=== PATIENT | male | born 1950 | race Caucasian/White ===

== ENCOUNTER 2016-11-06 18:08 | Emergency (ER) | payer MEDICARE, OTHER ==
[~2016-11-06] VITALS: Ht 185.4 cm; Wt 78.6 kg
[2016-11-06 18:09] VITALS: BP 179/85
[2016-11-06 20:03] LABS: BASO # 0.1 K/mm3 (0.0-0.2); BASO % 1.8 % (0.0-1.0); EOS # 0.8 K/mm3 (0.0-0.50); EOS % 10.7 % (0.0-3.0); LARGE UNSTAINED CELL # 0.2 K/mm3 (0.0-0.4); LARGE UNSTAINED CELL % 2.4 % (0.0-4.0); LYMPH # 1.5 K/mm3 (1.5-4.5); LYMPH % 17.4 % (24.0-44.0); MEAN CORPUSCULAR HEMOGLOBIN 30.8 pg (27.0-33.0); MEAN CORPUSCULAR VOLUME 90.7 fl (80.0-96.0); MONO # 0.6 K/mm3 (0.0-0.8); MONO % 7.4 % (0.0-5.0); NEUTROPHILS # 4.7 K/mm3 (1.8-7.7); NEUTROPHILS % 60.3 % (36.0-66.0); PLATELET COUNT, AUTOMATED 216 k/mm3 (150-450); RED CELL DISTRIBUTION WIDTH 14.4 % (11.5-14.5); WHITE BLOOD COUNT 7.8 K/mm3 (4.0-10.0)
[2016-11-06 20:23] LABS: CALCIUM LEVEL 8.9 MG/DL (8.8-10.2); CREATININE FOR GFR 5.07 MG/DL (0.70-1.30); GLOMERULAR FILTRATION RATE 12.2 (>49); POTASSIUM SERUM 4.9 MEQ/L (3.5-5.1)
== END 2016-11-06 21:27 | disposition home or self-care (01) ==
LOC: M ED 18:08
DX: N18.9 Chronic kidney disease, unspecified (principal); I12.9 Hypertensive chronic kidney disease with stage 1 through stage 4 chronic kidney disease, or unspecified chronic kidney disease; E11.22 Type 2 diabetes mellitus with diabetic chronic kidney disease; I25.10 Atherosclerotic heart disease of native coronary artery without angina pectoris; I25.2 Old myocardial infarction; E78.00 Pure hypercholesterolemia, unspecified; F17.200 Nicotine dependence, unspecified, uncomplicated; Z86.73 Personal history of transient ischemic attack (TIA), and cerebral infarction without residual deficits; Z95.1 Presence of aortocoronary bypass graft

== ENCOUNTER 2017-01-02 15:12 | Emergency (ER) | payer OTHER, MEDICARE ==
[~2017-01-02] VITALS: Ht 185.4 cm; Wt 80.9 kg
[2017-01-02] MEDS ORDERED: INSULANT SC (15:24)
[2017-01-02] MEDS ORDERED: ROCA0.25 PO (15:24)
[2017-01-02] MEDS ORDERED: FURO40TA2 PO ×2 (15:24→20:19)
[2017-01-02] MEDS ORDERED: CYMB60CA3 PO (15:24)
[2017-01-02] MEDS ORDERED: CARV25TA PO (15:24)
[2017-01-02] MEDS ORDERED: ASPI81TA85 PO (15:24)
[2017-01-02] MEDS ORDERED: PREG50CA PO (15:24)
[2017-01-02] MEDS ORDERED: ATOR40TA75 PO (15:24)
[2017-01-02 18:23] LABS: BASO # 0.1 10^3/uL (0.0-0.2); BASO % 0.9 % (0.0-1.0); EOS # 0.7 10^3/uL (0.0-0.50); EOS % 8.2 % (0.0-3.0); IMMATURE GRANULOCYTE % 0.2 % (0-0); LYMPH # 1.1 10^3/uL (1.5-4.5); LYMPH % 12.5 % (24.0-44.0); MEAN CORPUSCULAR HEMOGLOBIN 30.1 pg (27.0-33.0); MEAN CORPUSCULAR HGB CONC 34.3 g/dl (32.0-36.5); MEAN CORPUSCULAR VOLUME 87.8 fl (80.0-96.0); MONO # 0.5 10^3/uL (0.0-0.8); MONO % 5.1 % (0.0-5.0); NEUTROPHILS # 6.6 10^3/uL (1.8-7.7); NEUTROPHILS % 73.1 % (36.0-66.0); PLATELET COUNT, AUTOMATED 195 10^3/uL (150-450); RED CELL DISTRIBUTION WIDTH 14.1 % (11.5-14.5)
[2017-01-02 18:25] LABS: CALCIUM LEVEL 10.5 MG/DL (8.8-10.2); CREATININE FOR GFR 6.12 MG/DL (0.70-1.30); GLOMERULAR FILTRATION RATE 9.8 (>49); POTASSIUM SERUM 4.6 MEQ/L (3.5-5.1)
[2017-01-02 18:26] LABS: INR 1.18
[2017-01-02 18:28] LABS: ADD MORPHOLOGY? NO
--- NOTE | 2017-01-02 18:33 | REP ---
CT Head without contrast HISTORY: Infarction COMPARISON: None Areas of increased signal intensity on T2-weighted images are present in the periventricular and subcortical white matter. This represents small-vessel ischemic disease. There is no intraparenchymal hemorrhage, acute infarct, mass or midline shift. The ventricular system and cortical sulci as well as subarachnoid space in the posterior fossa are dilated consistent with mild volume loss. There is no extra cerebral collection. There is no fracture. The visualized sinuses are clear. IMPRESSION: 1. Small vessel ischemic disease. 2. Mild volume loss. Signed by Andrea Stevens MD 01/02/2017 06:24 P
--- NOTE | 2017-01-02 18:37 | REP ---
Chest two views HISTORY: Dizziness Comparison: None The lungs are clear. The heart is normal in size. The pulmonary vasculature is normal in appearance. The bony structure is intact. The patient is status post sternotomy. IMPRESSION: No acute disease. Signed by Andrea Stevens MD 01/02/2017 06:28 P
[2017-01-02] MEDS ORDERED: ATOR80TA59 PO (20:19)
[2017-01-02 21:51] VITALS: BP 153/80
--- NOTE | 2017-01-02 23:47 | REPUSA ---
MRI of the brain Clinical history: memory problems, slurred speech. Technique: [id number] MRA images of the brain were obtained without administration of contrast. 3 -D MIP images were also obtained. Findings: The vascular structures extending from the distal carotid and vertebrobasilar arterial syst ems, through the [place], demonstrate normal caliber and contour. There is no evidence of an eurysm, stenosis, or thrombosis. Impression: Unremarkable MRA examination of the brain.
--- NOTE | 2017-01-02 23:47 | REPUSA ---
MRI of the brain. Clinical history: memory problems, slurred speech. Technique: Multiecho multiplanar MRI images of the brain were obtained without administration of cont rast. Diffusion weighted images with ADC mapping was also obtained. Findings: The ventricles and sulci are symmetric bilaterally. The brain parenchyma demonstrates periventricular and bilateral subcortical white matter T2 hyperintensity. There is no midline shift, mass effect, or extra-axial fluid collection. The midline intracranial structures do not demonstrate any gross abnor malities. The cervical cranial junction is intact. The orbits are unremarkable. The visualized parana gerri sinuses and mastoid air cells are clear. The osseous structures and superficial soft tissues are unremarkable. The vascular structures demonstrate appropriate flow voids. Impression: No acute infarct or hemorrhage. Moderate chronic small vessel ischemic changes as describ ed.
--- NOTE | 2017-01-03 08:27 | ECGEPIP ---
Stationary ECG Study [facility] - ED Test Date: 2017-01-02 Pat Name: JENNYFER AYALA Department: Room: - Gender: M [employer]visor [employer]: delmy : [id number] Requested By: Danilo Do Order Number: [id number] Reading MD: Max Zaragoza Measurements Intervals [place] Rate: 67 P: 53 MT: 175 QRS: 49 QRSD: 125 T: 108 QT: 415 QTc: 440 Interpretive Statements SINUS RHYTHM POSSIBLE LEFT ATRIAL ENLARGEMENT LEFT VENTRICULAR HYPERTROPHY AND ST-T CHANGE PROBABLE INFERIOR MYOCARDIAL INFARCTION, PROBABLY OLD NO PRIORS Electronically Signed On 01-03-2017 8:27:04 EDT by Max Zaragoza
== END 2017-01-03 00:31 | disposition left against medical advice (07) ==
LOC: M ED 15:12
DX: N18.3 Chronic kidney disease, stage 3 (moderate) (principal); E11.40 Type 2 diabetes mellitus with diabetic neuropathy, unspecified; I12.9 Hypertensive chronic kidney disease with stage 1 through stage 4 chronic kidney disease, or unspecified chronic kidney disease; E78.00 Pure hypercholesterolemia, unspecified; F17.210 Nicotine dependence, cigarettes, uncomplicated; I25.2 Old myocardial infarction; Z79.4 Long term (current) use of insulin; Z79.899 Other long term (current) drug therapy; Z79.82 Long term (current) use of aspirin; Z86.73 Personal history of transient ischemic attack (TIA), and cerebral infarction without residual deficits; Z95.5 Presence of coronary angioplasty implant and graft

== ENCOUNTER 2017-12-01 07:00 | Emergency (ER) | payer MEDICARE ==
[2017-12-01] MEDS: NS 1,000 ML IV (07:11)
[2017-12-01 07:37] LABS: BASO # 0.1 10^3/uL (0.0-0.2); BASO % 0.9 % (0.0-1.0); EOS % 8.5 % (0.0-3.0); HEMATOCRIT 38.1 % (42.0-52.0); HEMOGLOBIN 12.6 g/dl (13.5-17.5); IMMATURE GRANULOCYTE % 0.4 % (0-3.0); LYMPH # 1.1 10^3/uL (1.5-4.5); LYMPH % 9.5 % (24.0-44.0); MEAN CORPUSCULAR HEMOGLOBIN 30.1 pg (27.0-33.0); MEAN CORPUSCULAR HGB CONC 33.1 g/dl (32.0-36.5); MEAN CORPUSCULAR VOLUME 90.9 fl (80.0-96.0); MONO # 0.5 10^3/uL (0.0-0.8); MONO % 4.1 % (0.0-5.0); NEUTROPHILS # 9.1 10^3/uL (1.8-7.7); NEUTROPHILS % 76.6 % (36.0-66.0); PLATELET COUNT, AUTOMATED 197 10^3/uL (150-450); RED BLOOD COUNT 4.19 10^6/uL (4.30-6.10); RED CELL DISTRIBUTION WIDTH 15.1 % (11.5-14.5); WHITE BLOOD COUNT 11.8 10^3/uL (4.0-10.0)
[2017-12-01 08:00] LABS: ALBUMIN 3.5 GM/DL (3.2-5.2); ALBUMIN/GLOBULIN RATIO 0.81 (1.00-1.93); ALKALINE PHOSPHATASE 84 U/L (45-117); ALT/SGPT 14 U/L (12-78); ANION GAP 10 MEQ/L (8-16); AST/SGOT 14 U/L (7-37); BILIRUBIN,DIRECT < 0.1 MG/DL (0.0-0.2); BILIRUBIN,TOTAL 0.3 MG/DL (0.2-1.0); BLOOD UREA NITROGEN 54 MG/DL (7-18); CALCIUM LEVEL 8.5 MG/DL (8.8-10.2); CARBON DIOXIDE LEVEL 20 MEQ/L (21-32); CHLORIDE LEVEL 113 MEQ/L (98-107); CK-MB VALUE MASS 4.9 NG/ML (<3.6); CPK CREATINE PHOSPHOKINASE 98 U/L (39-308); CREATININE FOR GFR 5.21 MG/DL (0.70-1.30); GLOMERULAR FILTRATION RATE 11.7 (>49); GLUCOSE, FASTING 170 MG/DL (70-100); LIPASE 1021 U/L (73-393); POTASSIUM SERUM 5.1 MEQ/L (3.5-5.1); SODIUM LEVEL 143 MEQ/L (136-145); TOTAL PROTEIN 7.8 GM/DL (6.4-8.2); TROPONIN I < 0.02 NG/ML (< 0.10)
[2017-12-01] MEDS: LORazepam 2 MG/ML VIAL (J2060) IV (08:01)
[2017-12-01] MEDS: METOCLOPRAMIDE INJ 10MG/2ML VIAL (J2765) IV (08:02)
[2017-12-01] MEDS: MECLIZINE 25 MG TABLET PO (08:02)
[2017-12-01] MEDS: CARVedilol 12.5 MG TAB PO (09:00)
== END 2017-12-01 15:34 | disposition home or self-care (01) ==
LOC: M ED 07:00
DX: I12.9 Hypertensive chronic kidney disease with stage 1 through stage 4 chronic kidney disease, or unspecified chronic kidney disease (principal); R42 Dizziness and giddiness; K85.90 Acute pancreatitis without necrosis or infection, unspecified; E11.9 Type 2 diabetes mellitus without complications; N18.9 Chronic kidney disease, unspecified; G62.9 Polyneuropathy, unspecified; Z86.73 Personal history of transient ischemic attack (TIA), and cerebral infarction without residual deficits; Z95.1 Presence of aortocoronary bypass graft; Z95.5 Presence of coronary angioplasty implant and graft; F17.210 Nicotine dependence, cigarettes, uncomplicated
CPT/HCPCS: J2765

== ENCOUNTER → 2023-11-02 | Outpatient (REF) | payer MEDICARE ==
[~2023-11-02] MED LIST: ASPI81TA86 PO; ATOR40TA75 PO; ATOR80TA59 PO; CARV25TA PO; CYMB60CA4 PO; FURO40TA2 PO; INSULANT SC; MECL-209 PO; PREG50CA PO; ROCA0.25 PO
== END ==
LOC: M LAB REF 16:16
PROVIDERS: ATTEND Student in an Organized Health Care Education/Training Program
DX: R30.0 Dysuria (principal)

== ENCOUNTER 2023-11-25 10:17 | Inpatient (IN) | payer MEDICARE ==
[~2023-11-25] VITALS: Ht 152.4 cm; Wt 62.5 kg
[2023-11-25] MEDS: BISOPROLOL FUM 2.5 MG PER 1/2TAB PO SCH (09:00)
[2023-11-25] MEDS: LISINOPRIL *2.5 MG* TAB PO SCH (09:00)
[2023-11-25 11:30] LABS: BASO # 0.1 10^3/uL (0.0-0.2); BASO % 1.8 % (0.0-1.0); EOS # 0.2 10^3/uL (0.0-0.5); EOS % 4.5 % (0.0-3.0); HEMATOCRIT 33.8 % (42.0-52.0); HEMOGLOBIN 10.9 g/dl (13.5-17.5); LYMPH # 0.8 10^3/uL (1.5-5.0); LYMPH % 15.8 % (24.0-44.0); MEAN CORPUSCULAR HEMOGLOBIN 30.9 pg (27.0-33.0); MEAN CORPUSCULAR HGB CONC 32.2 g/dl (32.0-36.5); MEAN CORPUSCULAR VOLUME 95.8 fl (80.0-96.0); MONO # 0.3 10^3/uL (0.0-0.8); MONO % 6.6 % (2.0-8.0); NEUTROPHILS # 3.5 10^3/uL (1.5-8.5); NEUTROPHILS % 70.9 % (36.0-66.0); PLATELET COUNT, AUTOMATED 191 10^3/uL (150-450); RED BLOOD COUNT 3.53 10^6/uL (4.30-6.10); WHITE BLOOD COUNT 4.9 10^3/uL (4.0-10.0)
[2023-11-25 11:38] LABS: INR 1.21; PROTHROMBIN TIME 14.9 SECONDS (12.5-14.5)
[2023-11-25] MEDS: LIDOCAINE 2% 5ML JELLY UROJET TOP ONE (11:52)
[2023-11-25 12:53] LABS: ALBUMIN 3.8 G/DL (3.2-5.2); BILIRUBIN,TOTAL 0.3 MG/DL (0.3-1.2); CALCIUM LEVEL 8.5 MG/DL (8.3-10.6); CREATININE FOR GFR 5.5 MG/DL (0.70-1.30); GLOMERULAR FILTRATION RATE 10.8 (>42); POTASSIUM SERUM 5.9 MMOL/L (3.5-5.1); TOTAL PROTEIN 7.6 G/DL (5.7-8.2)
[2023-11-25] MEDS ORDERED: HOME MED LIST COMPLETE! XX SCH (13:40)
[2023-11-25] MEDS ORDERED: GLUCAGON INJ 1MG VIAL SC PRN (15:05)
[2023-11-25] MEDS ORDERED: DEXTROSE 50% 50ML SYRINGE IV PRN (15:05)
[2023-11-25] MEDS ORDERED: GLUCOSE 4 GM CHEW PO PRN (15:05)
[2023-11-25] MEDS: oxyBUTYnin 5 MG TAB PO SCH (15:23)
[2023-11-25] MEDS: ACETAMINOPHEN TAB 650MG DOSE (2X325MG) PO PRN (15:23)
[2023-11-25] MEDS: NICOTINE 21MG/24HR 1 EA TRANSDERMAL TD ONE (15:23)
[2023-11-25] MEDS: NS 1,000 ML IV SCH (15:24)
[2023-11-25 16:10] LABS: C REACTIVE PROTEIN QUANTITATIV 0.5 MG/DL (<1.0)
[2023-11-25 16:11] LABS: CHOLESTEROL RISK RATIO 4.29 (<5); HDL CHOLESTEROL 41.9 MG/DL (>40); LDL CHOLESTEROL 114.3 MG/DL (<100); NON-HDL-C 138.1 MG/DL
[2023-11-25 16:13] LABS: FREE T4 1.19 NG/DL (0.89-1.76); THYROID STIMULATING HORMONE 2.192 uIU/ML (0.55-4.78); TOTAL 25(OH) VITAMIN D 35.7 NG/ML (20.0-100.0)
[2023-11-25] MEDS: INSULIN LISPRO (NovoLOG) PER UNIT SC SCH ×2 (17:30→21:18)
[2023-11-25 17:35] VITALS: BP 111/91; TEMP 97.9; O2SAT 97
[2023-11-25 19:55] LABS: HEMOGLOBIN A1c 6.1 % (4.0-6.0)
[2023-11-25 19:59] VITALS: BP 100/63; TEMP 97.9; O2SAT 95
[2023-11-25] MEDS: ONDANSETRON 4MG 2ML VIAL IV ONE (21:35)
[2023-11-25 22:19] LABS: ALBUMIN 3.5 G/DL (3.2-5.2); ALKALINE PHOSPHATASE 86 U/L (46-116); ALT/SGPT < 9 U/L (7.0-40); AST/SGOT 9 U/L (<34); BILIRUBIN,TOTAL 0.2 MG/DL (0.3-1.2); BLOOD UREA NITROGEN 55 MG/DL (9-23); CALCIUM LEVEL 8.5 MG/DL (8.3-10.6); CARBON DIOXIDE LEVEL 26 MMOL/L (20-31); CHLORIDE LEVEL 103 MMOL/L (98-107); CREATININE FOR GFR 6.52 MG/DL (0.70-1.30); GLOMERULAR FILTRATION RATE 8.9 (>42); GLUCOSE, FASTING 305 MG/DL (74-106); MAGNESIUM LEVEL 2.2 MG/DL (1.8-2.4); POTASSIUM SERUM 4.9 MMOL/L (3.5-5.1); SODIUM LEVEL 139 MMOL/L (136-145)
[2023-11-26] VITALS (12 sets, daily range): BP systolic 86–124; BP diastolic 55–78; TEMP 97.7–98.1; O2SAT 91–100
[2023-11-26 06:14] LABS: HEMATOCRIT 26.7 % (42.0-52.0); MEAN CORPUSCULAR HEMOGLOBIN 30.7 pg (27.0-33.0); MEAN CORPUSCULAR HGB CONC 32.2 g/dl (32.0-36.5); MEAN CORPUSCULAR VOLUME 95.4 fl (80.0-96.0); PLATELET COUNT, AUTOMATED 192 10^3/uL (150-450); WHITE BLOOD COUNT 9.1 10^3/uL (4.0-10.0)
[2023-11-26 06:22] LABS: HEMOGLOBIN 8.6 g/dl (13.5-17.5)
[2023-11-26 06:30] LABS: ALBUMIN 3.4 G/DL (3.2-5.2); BILIRUBIN,TOTAL 0.2 MG/DL (0.3-1.2); CALCIUM LEVEL 8.4 MG/DL (8.3-10.6); CREATININE FOR GFR 6.95 MG/DL (0.70-1.30); GLOMERULAR FILTRATION RATE 8.3 (>42); POTASSIUM SERUM 5.4 MMOL/L (3.5-5.1); TOTAL PROTEIN 6.5 G/DL (5.7-8.2)
[2023-11-26] MEDS: ATORVASTATIN 20 MG TAB PO SCH (08:39)
[2023-11-26] MEDS: (RENVELA) SEVELAMER **CARBONate** 800 MG TAB PO SCH (11:53)
[2023-11-26] MEDS ORDERED: ONDANSETRON 4MG 2ML VIAL As Ordered ONE (12:49)
[2023-11-26] MEDS ORDERED: propofoL 200 MG/20 ML VIAL As Ordered ONE (12:49)
[2023-11-26] MEDS ORDERED: LIDOCAINE 2% 100MG/5ML SDV (FOR ANES.) As Ordered ONE (12:52)
[2023-11-26] MEDS ORDERED: fentaNYL 100 MCG/2 ML INJECTION As Ordered ONE (12:54)
[2023-11-26] MEDS ORDERED: PHENYLephrine 500MCG 5ML (100MCG/ML) SYRINGE As Ordered ONE (13:27)
[2023-11-26] MEDS: ceFAZolin 2 GM/D5W 50 ML IV BAG As Ordered ONE (13:29)
[2023-11-26] MEDS: fentaNYL 100 MCG/2 ML INJECTION IV PRN (14:29)
[2023-11-26] MEDS: LR 1,000 ML IV SCH (14:30)
[2023-11-26] MEDS ORDERED: ONDANSETRON 4MG 2ML VIAL IV PRN (14:30)
[2023-11-26] MEDS ORDERED: diphenhydrAMINE 50MG/ML VIAL IV PRN (14:30)
[2023-11-26] MEDS ORDERED: METOCLOPRAMIDE INJ 10MG/2ML VIAL IV PRN (14:30)
[2023-11-26] MEDS ORDERED: MEPERIDINE 25 MG/ML 1ML VIAL IV PRN (14:30)
[2023-11-26] MEDS: oxyCODONE 5MG TAB PO PRN (14:38)
[2023-11-26] MEDS: HYOSCYAMINE SULFATE 0.125 MG SUBL TABLET PO SCH (15:29)
[2023-11-26] MEDS: oxyBUTYnin 5 MG TAB PO SCH (15:29)
[2023-11-26] MEDS: PATIROMER SORBITEX CALCIUM 8.4 GM POWDER PACKET (VELTASSA) PO ONE (15:29)
[2023-11-26] MEDS: diphenhydrAMINE 12.5MG/5ML ELIXIR UDC PO PRN (18:27)
[2023-11-27] VITALS (9 sets, daily range): BP systolic 83–124; BP diastolic 47–77; TEMP 97.7–98.2; O2SAT 97–99
[2023-11-27 05:58] LABS: BASO # 0.1 10^3/uL (0.0-0.2); BASO % 0.8 % (0.0-1.0); EOS # 0.3 10^3/uL (0.0-0.5); EOS % 4.9 % (0.0-3.0); HEMATOCRIT 23.5 % (42.0-52.0); HEMOGLOBIN 7.5 g/dl (13.5-17.5); LYMPH # 1.1 10^3/uL (1.5-5.0); LYMPH % 16.4 % (24.0-44.0); MEAN CORPUSCULAR HEMOGLOBIN 30.7 pg (27.0-33.0); MEAN CORPUSCULAR HGB CONC 31.9 g/dl (32.0-36.5); MEAN CORPUSCULAR VOLUME 96.3 fl (80.0-96.0); MONO # 0.5 10^3/uL (0.0-0.8); MONO % 7.3 % (2.0-8.0); NEUTROPHILS # 4.5 10^3/uL (1.5-8.5); NEUTROPHILS % 70.1 % (36.0-66.0); PLATELET COUNT, AUTOMATED 161 10^3/uL (150-450); RED BLOOD COUNT 2.44 10^6/uL (4.30-6.10); WHITE BLOOD COUNT 6.5 10^3/uL (4.0-10.0)
[2023-11-27] MEDS ORDERED: HEPARIN 1,000UNITS/ML 10ML VIAL (FOR RADIOLOGY & DIALYSIS ONLY) XX SCH (06:00)
[2023-11-27] MEDS ORDERED: HEPARIN 1,000UNITS/ML 10ML VIAL (FOR RADIOLOGY & DIALYSIS ONLY) IV PRN (06:00)
[2023-11-27] MEDS ORDERED: SODIUM CHLORIDE 0.9% 1000ML IV PRN (06:00)
[2023-11-27] MEDS ORDERED: LIDOCAINE 1% SDV 5ML VIAL SC PRN (06:00)
[2023-11-27 06:32] LABS: CALCIUM LEVEL 8.6 MG/DL (8.3-10.6); CREATININE FOR GFR 8.26 MG/DL (0.70-1.30); GLOMERULAR FILTRATION RATE 6.8 (>42); POTASSIUM SERUM 6.2 MMOL/L (3.5-5.1)
[2023-11-27] MEDS: DARBEPOETIN 100MCG/0.5ML *DIALYSIS* SYRINGE IV SCH (08:43)
[2023-11-27] MEDS: oxyBUTYnin 5 MG TAB PO SCH (20:35)
[2023-11-28 04:00] VITALS: BP 98/57; TEMP 97.9; O2SAT 94
[2023-11-28 05:30] VITALS: BP 105/60
[2023-11-28 06:19] LABS: BASO # 0.1 10^3/uL (0.0-0.2); BASO % 0.9 % (0.0-1.0); EOS # 0.3 10^3/uL (0.0-0.5); HEMATOCRIT 25.9 % (42.0-52.0); HEMOGLOBIN 8.6 g/dl (13.5-17.5); LYMPH % 17.2 % (24.0-44.0); MEAN CORPUSCULAR HGB CONC 33.2 g/dl (32.0-36.5); MEAN CORPUSCULAR VOLUME 93.5 fl (80.0-96.0); MONO # 0.6 10^3/uL (0.0-0.8); MONO % 10.5 % (2.0-8.0); NEUTROPHILS # 3.7 10^3/uL (1.5-8.5); NEUTROPHILS % 64.7 % (36.0-66.0); PLATELET COUNT, AUTOMATED 142 10^3/uL (150-450); RED BLOOD COUNT 2.77 10^6/uL (4.30-6.10); WHITE BLOOD COUNT 5.7 10^3/uL (4.0-10.0)
[2023-11-28 06:53] LABS: CALCIUM LEVEL 8.3 MG/DL (8.3-10.6); CREATININE FOR GFR 5.87 MG/DL (0.70-1.30); GLOMERULAR FILTRATION RATE 10.1 (>42); POTASSIUM SERUM 4.4 MMOL/L (3.5-5.1)
[2023-11-28] MEDS ORDERED: RENV2TAB PO (11:16)
[2023-11-28] MEDS ORDERED: OXYB5TAB14 PO (11:16)
== END 2023-11-28 12:37 | disposition home or self-care (01) | DRG 668 ==
LOC: M ED 10:17 → M ED INP 14:40 → M MSPAV 17:12
PROVIDERS: ADMIT Hospitalist; ATTEND Hospitalist
PROC: 0TCB7ZZ Extirpation of Matter from Bladder, Via Natural or Artificial Opening (ICD-10-PCS; 2023-11-25)
PROC: 0TCB8ZZ Extirpation of Matter from Bladder, Via Natural or Artificial Opening Endoscopic (ICD-10-PCS; 2023-11-26)
PROC: 0TBB8ZZ Excision of Bladder, Via Natural or Artificial Opening Endoscopic (ICD-10-PCS; principal; 2023-11-26 13:00)
PROC: 5A1D70Z Performance of Urinary Filtration, Intermittent, Less than 6 Hours Per Day (ICD-10-PCS; 2023-11-27)
PROC: 30233N1 Transfusion of Nonautologous Red Blood Cells into Peripheral Vein, Percutaneous Approach (ICD-10-PCS; 2023-11-27)
DX: D41.4 Neoplasm of uncertain behavior of bladder (principal); N18.6 End stage renal disease; I12.0 Hypertensive chronic kidney disease with stage 5 chronic kidney disease or end stage renal disease; F17.210 Nicotine dependence, cigarettes, uncomplicated; Z99.2 Dependence on renal dialysis; E11.22 Type 2 diabetes mellitus with diabetic chronic kidney disease; I25.10 Atherosclerotic heart disease of native coronary artery without angina pectoris; N40.0 Benign prostatic hyperplasia without lower urinary tract symptoms; I70.0 Atherosclerosis of aorta; I71.43 Infrarenal abdominal aortic aneurysm, without rupture; M19.90 Unspecified osteoarthritis, unspecified site; E78.5 Hyperlipidemia, unspecified; R31.0 Gross hematuria; D64.9 Anemia, unspecified; I72.3 Aneurysm of iliac artery; E87.5 Hyperkalemia; N28.89 Other specified disorders of kidney and ureter; Z86.73 Personal history of transient ischemic attack (TIA), and cerebral infarction without residual deficits; Z88.8 Allergy status to other drugs, medicaments and biological substances

== ENCOUNTER → 2023-12-23 | Outpatient (CLI) | payer MEDICARE, OTHER ==
[~2023-12-23] MED LIST changes: +OXYB5TAB14 PO; +RENV2TAB PO
== END ==
LOC: M RAD 10:10
PROVIDERS: ATTEND Urology
DX: N28.9 Disorder of kidney and ureter, unspecified (principal)

== ENCOUNTER → 2024-10-12 | Outpatient (CLI) | payer MEDICARE ==
[~2024-10-12] MED LIST changes: -PREG50CA PO; +PREG50CA87 PO; +TRAM50TA2 PO
== END ==
LOC: M SOG 07:13
PROVIDERS: ATTEND Orthopaedic Surgery
DX: M25.572 Pain in left ankle and joints of left foot (principal); S82.65XA Nondisplaced fracture of lateral malleolus of left fibula, initial encounter for closed fracture; W18.30XA Fall on same level, unspecified, initial encounter; Y92.009 Unspecified place in unspecified non-institutional (private) residence as the place of occurrence of the external cause

== ENCOUNTER → 2024-12-21 | Outpatient (REF) | payer MEDICARE ==
[2024-12-21 18:46] LABS: APPEARANCE, URINE CLEAR (CLEAR); BACTERIA, URINE AUTO NEGATIVE (NEGATIVE); BILIRUBIN, URINE AUTO NEGATIVE (NEGATIVE); BLOOD, URINE BLOOD NEGATIVE (NEGATIVE); GLUCOSE, URINE (UA) AUTO 1+ mg/dL (NEGATIVE); KETONE, URINE AUTO NEGATIVE (NEGATIVE); LEUKOCYTE ESTERASE, URINE AUTO NEGATIVE (NEGATIVE); NITRITE, URINE AUTO NEGATIVE (NEGATIVE); PROTEIN, URINE AUTO 2+ mg/dL (NEGATIVE); RBC, URINE AUTO 2 /HPF (0-3); SPECIFIC GRAVITY URINE AUTO 1.009 (1.002-1.035); SQUAMOUS EPITHELIAL CELL UR AU 0 /HPF (0-6); UROBILINOGEN, URINE AUTO 0.2 mg/dL (0.0-2.0); WBC, URINE AUTO 2 /HPF (0-3)
== END ==
LOC: M LAB REF 13:45
PROVIDERS: ATTEND Urology
DX: Z85.51 Personal history of malignant neoplasm of bladder (principal)